=== PATIENT | female | born 1990 | race Hispanic/Latino ===

== ENCOUNTER 2017-01-17 11:49 | Emergency (ER) | payer OTHER ==
[~2017-01-17] VITALS: Ht 162.6 cm; Wt 62.1 kg
[2017-01-17] MEDS ORDERED: CYCL5TA PO (11:56)
[2017-01-17 12:29] VITALS: BP 123/61
== END 2017-01-17 12:39 | disposition home or self-care (01) ==
LOC: M ED 12:36
DX: S61.211A Laceration without foreign body of left index finger without damage to nail, initial encounter (principal); X58.XXXA Exposure to other specified factors, initial encounter; Y92.89 Other specified places as the place of occurrence of the external cause; Y93.89 Activity, other specified; Y99.0 Civilian activity done for income or pay